=== PATIENT | female | born 1945 | race Caucasian/White ===

== ENCOUNTER 2020-01-06 15:21 | Outpatient (CLI) | payer MEDICARE, OTHER, SELFPAY ==
[2020-01-06 15:57] LABS: Basophils Absolute Auto 0.1 K/mm3 (0.0-0.1); Basophils Percent Auto 0.5 % (0.2-1.2); Eosinophils Absolute Auto 0.2 K/mm3 (0-0.3); Eosinophils Percent Auto 1.9 % (0-4.4); Hemoglobin 10.3 g/dL (12.0-15.0); Immature Granulocyte Absolute 0.03 K/mm3 (0.00-0.031); Immature Granulocyte Percent A 0.3 % (0-0.5); Lymphocytes Absolute Auto 2.73 K/mm3 (0.9-3.2); Lymphocytes Percent Auto 27.4 % (18.3-44.2); Mean Corpuscular HGB Conc 31.2 g/dl (32-36); Mean Corpuscular Hemoglobin 28.9 pg (26-34); Mean Corpuscular Volume 92.4 fl (80-100); Mean Platelet Volume 9.3 fl (7.4-10.4); Monocytes Absolute Auto 0.8 K/mm3 (0.1-0.6); Monocytes Percent Auto 8.4 % (2.6-8.5); Neutrophils Absolute Auto 6.1 K/mm3 (1.3-6.7); Neutrophils Percent Auto 61.5 % (45.5-73.1); Platelet Count Result 388 k/mm3 (150-375); Red Blood Count 3.57 M/mm3 (4.2-5.4); Red Cell Distribution Width 15.9 % (11.5-14.5)
[2020-01-06 16:15] LABS: Alanine Aminotransferase 23 U/L (4-35); Albumin Level 3.9 g/dL (3.5-5.1); Alkaline Phosphatase 117 U/L (38-126); Anion Gap 9 mmol/L (8-16); Aspartate Amino Transferase 39 U/L (14-36); Bilirubin,Total 0.7 mg/dL (0.2-1.3); Blood Urea Nitrogen 16 mg/dL (7-17); Calcium 10.4 mg/dL (8.4-10.2); Carbon Dioxide 35 mmol/L (22-30); Chloride 94 mmol/L (98-107); Estimated Glomerular Filt Rate 54; Glucose 101 mg/dL (65-105); Potassium 3.7 mmol/L (3.4-5.0); Sodium 138 mmol/L (137-145)
== END 2020-01-06 15:22 | disposition home or self-care (01) ==
LOC: ANHLAB 15:26
PROVIDERS: PCP Nurse Practitioner Family; Visit Provider Nurse Practitioner Family
DX: D64.9 Anemia, unspecified (principal); R79.89 Other specified abnormal findings of blood chemistry
CPT/HCPCS: 36415; 80053; 85025

== ENCOUNTER → 2020-06-23 00:32 | Outpatient (CLI) | payer MEDICARE, OTHER, SELFPAY ==
[2020-06-23 19:13] LABS: SARS-CoV-2 RNA PCR Negative
== END ==
PROVIDERS: PCP Nurse Practitioner Family; Visit Provider Internal Medicine Gastroenterology
DX: Z01.812 Encounter for preprocedural laboratory examination (principal); Z20.822 Contact with and (suspected) exposure to COVID-19
CPT/HCPCS: C9803; U0003; U0005

== ENCOUNTER 2020-06-27 03:10 | Day surgery (SDC) | payer MEDICARE, OTHER, SELFPAY ==
[2020-06-18 14:35] VITALS: BMI 30.2
[2020-06-27 09:27] VITALS: BP 138/113; PULSE 54; RESP 18; TEMP 36.5; O2SAT 95; BMI 30.3
[2020-06-27] MEDS: LACTATED RINGERS 1,000 ML 150 ML IV CONT (09:42)
--- NOTE | 2020-06-27 10:25 | WPDANESEPPF ---
Anes - Initial Pre Proc Eval Procedure: Operation Date: 06/27/20 10:30 Proposed Procedures p Esophagogastroduodenoscopy - Robin Crenshaw MD Date/Time: 06/27/20 10:25 Surgeon: Robin Crenshaw MD Pre Op Diagnosis: GERD Patient Data Age: 74 Gender: F Height: 5 ft 2 in Weight: 75.2 kg Last Vital Signs Temp 97.7 F 06/27/20 09:27 Pulse 54 L 06/27/20 09:27 Resp 18 06/27/20 09:27 BP 138/113 H 06/27/20 09:27 Pulse Ox 95 06/27/20 09:27 Allergies Allergy/AdvReac Type Severity Reaction Status Date / Time levofloxacin Allergy Severe MUSCLE Verified 06/27/20 09:25 WEAKNESS/PAIN/DIFFICULT TO MOVE methylprednisolone Allergy Mild Difficulty Verified 06/27/20 09:25 [From [employer]] Swallowing Home Medications Medication Instructions Recorded Confirmed Type Combivent Respimat 1 puff INHALATION Q4H 02/24/19 06/27/20 History amlodipine 2.5 mg PO DAILY 02/24/19 06/27/20 History aspirin [Aspir-81] 81 mg PO DAILY 02/24/19 06/27/20 History atorvastatin 20 mg PO HS 02/24/19 06/27/20 History bupropion HCl 75 mg PO BID 02/24/19 06/27/20 History fluoxetine 10 mg PO TID 02/24/19 06/27/20 History hydrochlorothiazide 12.5 mg PO DAILY 02/24/19 06/27/20 History hydrocodone-acetaminophen 1 tablet PO Q6H PRN 02/24/19 06/27/20 History levothyroxine 25 mcg PO DAILY 02/24/19 06/27/20 History loratadine 10 mg PO DAILY 02/24/19 06/27/20 History metoprolol tartrate 100 mg PO Q12H 02/24/19 06/27/20 History nitroglycerin 0.3 mg SUBLINGUAL Q5M PRN 02/24/19 06/27/20 History omeprazole 20 mg PO BID 02/24/19 06/27/20 History cholecalciferol (vitamin D3) 25 25 mcg PO DAILY 05/09/20 06/27/20 History mcg (1,000 unit) capsule cyclobenzaprine 10 mg tablet 10 mg PO TID 05/09/20 06/27/20 History duloxetine 30 mg capsule,delayed 30 mg PO DAILY 05/09/20 06/27/20 History release ferrous sulfate 324 mg (65 mg 324 mg PO DAILY 05/09/20 06/27/20 History iron) tablet,delayed release fluticasone propionate 50 1 spray INTRANASAL DAILY 05/09/20 06/27/20 History mcg/actuation nasal spray,suspension folic acid 400 mcg tablet 0.4 mg PO DAILY 05/09/20 06/27/20 History mecobalamin (vitamin B12) 1,000 1,000 mcg PO DAILY 05/09/20 06/27/20 History mcg chewable tablet Patient hx anesthesia problems: none Family hx anesthesia problems: none PMFSH Past Medical History Medical History (Updated 06/14/20 @ 09:57 by Simi Finch APN-Alicia) Acute bilateral low back pain with bilateral sciatica Allergic rhinitis Anemia Anxiety Arteriosclerotic heart disease Arthritis Asthma CAD (coronary artery disease) states SOB when climbing stairs Chest pain Closed displaced trimalleolar fracture of right ankle with routine healing COPD (chronic obstructive pulmonary disease) Coronary artery disease due to lipid rich plaque Coronary artery disease involving [place] artery of transplanted heart with angina pectoris Depression Dyslipidemia Elevated serum creatinine Eustachian tube dysfunction Folic acid deficiency GERD (gastroesophageal reflux disease) Headache History of basal cell carcinoma History of fracture of right ankle History of myocardial infarction History of traumatic head injury Hyperglycemia Hyperlipidemia Hypertension Hypothyroidism Insomnia Leukocytes in urine Low bone mass Memory impairment Nutcracker esophagus Overweight Surgical History Surgical History H/O hysterectomy for benign disease History of appendectomy History of tonsillectomy and adenoidectomy Social History Social History Smoking packs per day: 1 Smoking cigarettes per day: 20.0 Years smoked: 20 Smoking pack-years: 20.00 Smoking status: Former smoker Tobacco type: cigarettes Alcohol intake: never Substance use type: does not use Living arrangements: with family Spiritual care concerns: No Anes - Eval F
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
[2020-06-27 10:44] VITALS: BP 123/43; PULSE 57; RESP 18; O2SAT 97
[2020-06-27 10:54] VITALS: BP 121/45; PULSE 54; RESP 15; O2SAT 97
[2020-06-27 11:03] VITALS: BP 106/74; PULSE 56; RESP 20; O2SAT 96
[2020-06-27 11:13] VITALS: BP 121/90; PULSE 54; RESP 18; O2SAT 93
== END 2020-06-27 11:29 | disposition home or self-care (01) ==
PROVIDERS: PCP Nurse Practitioner Family; Visit Provider Internal Medicine Gastroenterology
PROC: 0DJ08ZZ Inspection of Upper Intestinal Tract, Via Natural or Artificial Opening Endoscopic (ICD-10-PCS; CPT 43235; principal; 2020-06-27 10:30)
DX: K44.9 Diaphragmatic hernia without obstruction or gangrene (principal); K29.70 Gastritis, unspecified, without bleeding; R10.11 Right upper quadrant pain; K21.9 Gastro-esophageal reflux disease without esophagitis; I10 Essential (primary) hypertension; I25.10 Atherosclerotic heart disease of native coronary artery without angina pectoris; J44.9 Chronic obstructive pulmonary disease, unspecified; E78.5 Hyperlipidemia, unspecified; D64.9 Anemia, unspecified; F41.8 Other specified anxiety disorders; E03.9 Hypothyroidism, unspecified; Z87.891 Personal history of nicotine dependence
CPT/HCPCS: 43239; 87081; 88305; J2704; J7120